=== PATIENT | male | born 2005 | race Caucasian/White ===

== ENCOUNTER 2024-10-14 21:23 | Emergency (ER) | payer MEDICAID, SELFPAY ==
[2024-10-14 21:31] VITALS: BP 116/83; PULSE 94; RESP 17; TEMP 36.6; O2SAT 98; BMI 21.2
--- OUTSIDE RECORDS SUMMARY | 2024-10-14 21:33 | XMS_ITS | Patient Health Record ---
Author Organization [facility] Address [address] [place] [address] Support Name Relationship Address Phone Balaji Bender Guarantor Unknown Reason For Referral No Information Immunizations Vaccine Route Administration Date Status Comme nts Influenza (whole), CPT 74187 Inactive Unknown 12/18/2018 Administered Social History Social History Additional Details Category Social Info Options Details zzMigrated Social History Migrated Social History Smoking Status:Never smoked tobacco (finding) Plan Of Treatment No Information
[2024-10-14 22:02] VITALS: BP 130/85; PULSE 84; O2SAT 98
--- NOTE | 2024-10-14 22:02 | ECG_ITS ---
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 Measurements Intervals [place] Rate: 84 P: 71 AR: 141 QRS: 78 QRSD: 90 T: 60 QT: 341 QTc: 404 Interpretive Statements SINUS RHYTHM No previous ECG available for comparison Electronically Signed On 10-15-2024 09:01:48 CDT by Yony Em M.D. [email or web address]
[2024-10-14 22:06] LABS: Hematocrit 47.2 % (37-53); Hemoglobin 17.10 g/dL (11.27-16.99); Mean Corpuscular HGB Conc 36.2 g/dL (30-55); Mean Corpuscular Hemoglobin 32.4 pg (27-33); Mean Corpuscular Volume 89.6 fl (82-101); Nucleated Red Blood Cells % 0 %; Platelet Count 215 10^3/cmm (157-399); Red Blood Count 5.27 10^6/uL (3.85-5.65); White Blood Count 7.41 10^3/uL (3.29-11.43)
[2024-10-14 22:19] LABS: Alanine Aminotransferase 17 U/L (0-41); Albumin Level 5.6 g/dL (3.5-5.2); Alkaline Phosphatase 112 U/L (40-130); Anion Gap 20.1 (5-19); Aspartate Amino Transferase 26 U/L (0-40); Blood Urea Nitrogen 18 mg/dL (6-20); Calcium 10.5 mg/dL (8.5-10.5); Carbon Dioxide 26 mmol/L (22-29); Chloride 94 mmol/L (98-107); Creatinine Clr Calc Pharmacy 123.7937; Globulin 3.2 g/dL (1.3-4.6); Glucose 94 mg/dL (65-115); Magnesium 2.2 mg/dL (1.7-2.3); Osmolality Calculated 284 mOsm/kg (285-295); Potassium 4.1 mmol/L (3.5-5.1); Sodium 136 mmol/L (136-145); Total Protein 8.8 g/dL (6.6-8.7)
--- NOTE | 2024-10-14 22:41 | W.ED.DIZZY ---
HPI - Dizziness General: Chief Complaint: Dizziness Stated Complaint: Feels Dehydrate hurt to Pee Time Seen by Provider: 10/14/24 22:01 History of Present Illness: HPI Narrative: Patient presents with complaints of dehydration and associated symptoms while working at [employer]. 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 Patient also reports intermittent cramping in the side that occurs when lying down or getting comfortable. Patient has been working at this job for approximately 1-2 weeks, with symptoms beginning yesterday. Patient admits to drinking only water without electrolyte supplementation. Patient has experienced similar symptoms previously while working in [place]. Related Data Allergies Allergy/AdvReac Type Severity Reaction Status Date / Time steroid Allergy ALGY-Redness Uncoded 10/14/24 21:36 of Skin Review of Systems General: Reports: 10 or more systems reviewed and unremarkable except in HPI and below Physical Exam Const: COMMON NORMALS: no acute distress, patient oriented x3, alert and well nourished HENMT: COMMON NORMALS: normocephalic HEAD & SCALP: normocephalic Eye: COMMON NORMALS: Equal, round and reactive pupils present, EOMs intact bilaterally and conjunctivae normal CONJUNCTIVA: Yes conjunctivae normal PUPIL: Yes Equal, round and reactive pupils present Chest: COMMONS NORMALS: normal inspection of the chest and normal palpation of entire chest wall Resp: COMMON NORMALS: normal respiratory effort, No retractions, No use of accessory muscles, clear to auscultation bilaterally and percussion normal AUSCULTATION: clear to auscultation bilaterally PERCUSSION: percussion normal Cardio: COMMON NORMALS: regular rate and regular rhythm RATE: regular rate RHYTHM: regular rhythm GI: COMMON NORMALS: Normal to inspection, nondistended, normoactive bowel sounds present, Soft to palpation, non-tender, No hepatosplenomegaly present, no masses and no bruits PALPATION: Yes Soft to palpation and Yes No hepatosplenomegaly present : COMMON NORMALS: Yes no CVA tenderness BLADDER/KIDNEY EXAM: Yes no CVA tenderness Back/Pelvis: COMMON NORMALS: no CVA tenderness Extremity: COMMON NORMALS: normal to inspection, full ROM, capillary refill normal, no joint enlargement, no clubbing, cyanosis or edema, no calf tenderness and no pedal edema Neuro: COMMON NORMALS: patient oriented x3 SENSORIUM/ORIENTATION: Yes alert Skin: COMMON NORMALS: no rashes or lesions noted, turgor normal and no jaundice GENERAL SKIN EXAM: no rashes or lesions noted and turgor normal Course Vital Signs: Vital signs: Vital Signs Temperature 98 F 10/14/24 21:31 Pulse Rate 77 10/14/24 23:18 Respiratory Rate 17 10/14/24 21:31 Blood Pressure 128/95 10/14/24 23:18 Pulse Oximetry 98 10/14/24 23:18 Oxygen Delivery Me thod Room Air 10/14/24 21:31 MDM - Dizziness Medical Decision Making 1. Dehydration secondary to occupational heat exposure - Clinical presentation consistent with mild to moderate dehydration - Likely exacerbated by inadequate fluid intake and lack of electrolyte replacement - Plan: Administer IV fluids with electrolytes - Obtain laboratory studies to assess electrolyte status and renal function - Patient education on proper hydration techniques including electrolyte supplementation 2. Occupational heat exposure - Patient working in high-temperature environment with inadequate hydration - Plan: Discuss workplace safety measures and appropriate breaks - Recommend gradual acclimatization to hot working conditions - Consider workplace assessment if symptoms persist 3. Muscle cramping - Likely related to electrolyte imbalance secondary to dehydration - Plan: Monitor response to fluid and electrolyte replacement - Recommend stretching exercises and adequate rest periods 4. Follow-up: - Review laboratory results when available - Return to clinic in 2-3 days if symptoms persist - Immediate return if symptoms worsen or new symptoms develop Patient's labs were reviewed he does have marijuana in his urine drug screen but says he has not used in some time. Talk to him about some of the issues with thermoregulation and dehydration that marijuana is thought to contribute to recommended that he increase his electrolytes and fluids take frequent breaks and manage the heat the best he can. I also encouraged him to get a primary care physician to follow-up with. Patient felt significantly better after receiving IV fluids in the emergency department. Lab Data 10/14/24 21:50 10/14/24 21:50 Laboratory Results WBC 7.41 10^3/uL (3.29-11.43) 10/14/24 21:50 RBC 5.27 10^6/uL (3.85-5.65) 10/14/24 21:50 Hgb 17.10 g/dL (11.27-16.99) H 10/14/24 21:50 Hct 47.2 % (37-53) 10/14/24 21:50 MCV 89.6 fl (82-101) 10/14/24 21:50 MCH 32.4 pg (27-33) 10/14/24 21:50 MCHC 36.2 g/dL (30-55) 10/14/24 21:50 RDW 11.6 % (12.1-15.1) L 10/14/24 21:50 Plt Count 215 10^3/cmm (157-399) 10/14/24 21:50 MPV 9.3 fL (7.4-10.4) 10/14/24 21:50 Neut % (Auto) 63.9 % 10/14/24 21:50 Lymph % (Auto) 26.3 % 10/14/24 21:50 Haskell % (Auto) 8.0 % 10/14/24 21:50 Eos % (Auto) 1.2 % 10/14/24 21:50 Baso % (Auto) 0.3 % 10/14/24 21:50 Neut # (Auto) 4.74 10^3/uL (1.8-7.7) 10/14/24 21:50 Lymph # (Auto) 2.0 10^3/uL (0.8-4.8) 10/14/24 21:50 Haskell # (Auto) 0.6 10^3/uL (0.2-0.9) 10/14/24 21:50 Eos # (Auto) 0.1 10^3/uL (0.0-0.8) 10/14/24 21:50 Baso # (Auto) 0.0 10^3/uL (0.0-0.1) 10/14/24 21:50 Nucleated RBC % (auto) 0 % 10/14/24 21:50 Nucleated RBCs # 0.0 /100WBC 10/14/24 21:50 Sodium 136 mmol/L (136-145) 10/14/24 21:50 Potassium 4.1 mmol/L (3.5-5.1) 10/14/24 21:50 Chloride 94 mmol/L (98-107) L 10/14/24 21:50 Carbon Dioxide 26 mmol/L (22-29) 10/14/24 21:50 Anion Gap 20.1 (5-19) H 10/14/24 21:50 BUN 18 mg/dL (6-20) 10/14/24 21:50 Creatinine 1.0 mg/dL (0.7-1.2) 10/14/24 21:50 GFR Calculation 94.3 mL/min (90-130) 10/14/24 21:50 Glucose 94 mg/dL (65-115) 10/14/24 21:50 Calculated Osmolality 284 mOsm/kg (285-295) L 10/14/24 21:50 Calcium 10.5 mg/dL (8.5-10.5) 10/14/24 21:50 Magnesium 2.2 mg/dL (1.7-2.3) 10/14/24 21:50 Total Bilirubin 2.1 mg/dL (0.15-1.2) H 10/14/24 21:50 AST 26 U/L (0-40) 10/14/24 21:50 ALT 17 U/L (0-41) 10/14/24 21:50 Alkaline Phosphatase 112 U/L (40-130) 10/14/24 21:50 Total Protein 8.8 g/dL (6.6-8.7) H 10/14/24 21:50 Albumin 5.6 g/dL (3.5-5.2) H 10/14/24 21:50 Globulin 3.2 g/dL (1.3-4.6) 10/14/24 21:50 Urine Opiates Screen Negative ng/mL (Negative) 10/14/24 22:15 Ur Barbiturates Screen Negative ng/mL (Negative) 10/14/24 22:15 Ur Phencyclidine Scrn Negative ng/mL (Negative) 10/14/24 22:15 Ur Amphetamines Screen Negative ng/mL (Negative) 10/14/24 22:15 U Benzodiazepines Scrn Negative ng/mL (Negative) 10/14/24 22:15 Urine Cocaine Screen Negative ng/mL (Negative) 10/14/24 22:15 U Marijuana (THC) Screen Positive ng/mL (Negative) H 10/14/24 22:15 No radiology studies performed this visit Discharge Plan Discharge Patient Disposition: Home Clinical Impression: Acute dehydration, Heat exhaustion Condition: Stable Discharge Orders: Discharge ED (Routine); Ordered 10/14/24 Ordered By: Robb Barone Discharge Diet: Advance as tolerated Discharge Activity: Resume usual activity Patient Instructions: Opioid Safety, Pain Management, Patient Portal & Kj Instructions Activity Restrictions/Additional Instructions: 1. Increase fluids containing electrolytes. Frequent breaks and meals. 2. Follow up with PCP for recheck next week - give list of area providers. 3. Return to ED for new or worsening symptoms. 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
[2024-10-14 22:51] LABS: PCP Screen Urine Negative (Negative)
[2024-10-14 23:18] VITALS: BP 128/95; PULSE 77; O2SAT 98
[2024-10-15 00:12] VITALS: BP 125/76; PULSE 78; O2SAT 96
== END 2024-10-15 00:10 | disposition home or self-care (01) ==
PROVIDERS: Emergency Provider Family Medicine
DX: E86.0 Dehydration (principal); X30.XXXA Exposure to excessive natural heat, initial encounter
CPT/HCPCS: 80053; 80306; 83735; 85025; 93005; 96360; 99284; J7030